=== PATIENT | female | born 1945 | race Caucasian/White ===

== ENCOUNTER 2025-04-03 08:33 | Outpatient (AMB) | payer MEDICARE, SELFPAY ==
--- NOTE | 2025-04-03 08:49 | A.PHYSOV ---
Vital Signs 04/03/25 08:50 Height 5 ft 5 in Weight 243 lb BMI 40.4 Intake Visit Reasons: F/U: 3M FUV Intake Note: 79 year old female in office today for her 3 month narcotic contract appointment Allergies amoxicillin (From Augmentin) Allergy (Unknown, Verified 04/03/25 08:46) Unknown clavulanic acid (From Augmentin) Allergy (Unknown, Verified 04/03/25 08:46) Unknown codeine Allergy (Unknown, Verified 04/03/25 08:46) Unknown piperacillin (From Zosyn) Allergy (Unknown, Verified 04/03/25 08:46) Unknown tazobactam (From Zosyn) Allergy (Unknown, Verified 04/03/25 08:46) Unknown vancomycin Allergy (Unknown, Verified 04/03/25 08:46) Unknown HPI Comments Details: History of Present Illness The patient is a 79-year-old female presenting with persistent neuropathic pain in her feet. She has a history of diabetic neuropathy, which has been ongoing for many years, contributing to her chronic pain condition. In addition to neuropathy, she suffers from chronic renal venous insufficiency and chronic lower extremity lymphedema, which have led to skin breakdowns and ulcers. These conditions have been managed with moisturizing and other supportive care measures. The patient has been on pregabalin and oxycodone for pain management, having transitioned from gabapentin due to lack of efficacy. Her pain management regimen has been stable, providing her with a better quality of life. Pain Description - Neuropathic pain is located in both legs. - Pain management includes pregabalin and oxycodone. - Pain has been controlled, improving quality of life. Results [facility] Surgical History (Updated 04/03/25 @ 08:51 by Lizette Shen MA) History of hand surgery (Unknown) Social History (Updated 04/03/25 @ 08:52 by Lizette Shen MA) Household Members: None Alcohol intake: current Alcohol intake frequency: does not drink Patient Tobacco Use Status: Never used Tobacco Use of substances other than those prescribed or required for medical reasons: No Current occupational status: retired Review of Systems Narrative Review of Systems - Neurological: Reports neuropathic pain in both legs. Denies exacerbation due to cold weather. - Integumentary: Reports moisturizing legs to manage skin breakdowns. Physical Exam Exam Exam: Physical Exam Patient appears to be in no acute distress. Appropriately conversant and oriented. Considerable degree of lower extremity edema with chronic skin discoloration secondary to chronic venous insufficiency. Neurological examination was deferred today. Her gait was not tested. Patient was examined in the wheelchair. Vital Signs: BMI result Body Mass Index 40.4 Assessment & Plan Assessment & Plan (1) Chronic pain syndrome: Code(s): G89.4 - Chronic pain syndrome Category: Medical (2) Diabetic neuropathy associated with type 2 diabetes mellitus: Code(s): E11.40 - Type 2 diabetes mellitus with diabetic neuropathy, unspecified Category: Medical Qualifiers: Diabetes mellitus complication detail: diabetic polyneuropathy Qualified Code(s): E11.42 - Type 2 diabetes mellitus with diabetic polyneuropathy (3) Lymphedema: Code(s): I89.0 - Lymphedema, not elsewhere classified Category: Medical Plan Pain Management - Affect: Pain management has improved her quality of life. - Analgesia: Currently on pregabalin and oxycodone, with stable pain control. - Adverse Effects: None reported. - Activities of Daily Living: Pain control allows for better quality of life. - Aberrant Drug Related Behaviors: None reported. - Prescription monitoring report reviewed. Plan Patient was informed and verbally consented to the use of an ambient scribe for clinic note documentation during this visit. 1. Diabetic Neuropathy The patient continues to manage diabetic neuropathy with pregabalin, having transitioned from gabapentin due to lack of efficacy. Pain management is stable, and she reports improved quality of life. 2. Chronic Renal Venous Insufficiency Chronic renal venous insufficiency is managed with supportive care, including moisturizing to prevent skin breakdowns. 3. Chronic Lower Extremity Lymphedema Chronic lower extremity lymphedema is managed with supportive care, including moisturizing to prevent skin breakdowns. 4. Neuropathic Pain Neuropathic pain is managed with pregabalin and oxycodone, with stable pain control reported. The prescription monitoring report was reviewed to ensure compliance. Discussion Notes During the visit, we discussed the management of the patient's neuropathic pain, emphasizing the importance of medication adherence and the effectiveness of her current regimen with pregabalin and oxycodone. We reviewed the prescription monitoring report to ensure compliance and discussed the continuation of her supportive care measures for her chronic conditions. Patient Instructions - Continue taking pregabalin and oxycodone as prescribed. - Moisturize legs regularly to prevent skin breakdowns. - Follow up with Dr. Cisse for leg care as scheduled. Coding Level of Care Code Est Pt Level 3 (89524) Complex EM visit Add On G2211 Diagnoses Chronic pain syndrome G89.4 Diabetic polyneuropathy associated with type 2 diabetes mellitus E11.42 Diabetes mellitus complication detail: diabetic polyneuropathy Lymphedema I89.0
[2025-04-03 08:50] VITALS: BMI 40.4
--- OUTSIDE RECORDS SUMMARY | 2025-04-03 08:51 | XMS_ITS | Clinical Summary ---
Author Organization [facility] Address [address] [place] [address] Phone Care Team Providers Care Shipping Manager Name Role Phone Angie Sheikh MD Primary Care Provider [phone] Allergies Active Allergy Reactions Criticality Noted Date Comments Amoxicillin-Pot Clavulanate Other (see comments) 07/18/2012 diarrhea Codeine Nausea And Vomiting,Other (see comments) 04/28/2005 Piperacillin-Tazobactam In Dex Other (see comments) 08/01/2018 Vancomycin Other (see comments) 08/01/2018 Medications Albuterol Sulfate 108 (90 Base) MCG/ACT aerosol powder Inhale Activ e ammonium lactate (LAC-HYDRIN) 12 % lotion Apply topically if needed for dry skin Active fluticasone (FLOVENT DISKUS) 50 MCG/BLIST diskus inhaler Inhale 1 puff 2 (two) times a day Rinse mouth with water after use to reduce aftertaste and incidence of candidiasis. Do not swallow. Active lidocaine-prilo mandi (EMLA) cream Apply topically if needed for mild pain Active metoprolol succinate XL (TOPROL-XL) 100 MG 24 hr tablet Take 100 mg by mouth 1 (one) time each day Do not crush or chew. Active montelukast (SINGULAIR) 10 MG tablet Take 10 mg by mouth every night Active acetaminophen (TYLENOL) 500 MG tablet Take by mouth every 6 (six) hours if needed for mild pain Active famotidine-calc ium carb-mag hydroxide (PEPCID COMPLETE) 10-800-165 MG chewable tablet Chew 1 tablet 1 (one) time each day if needed for heartburn Active potassium chloride (KLOR-CON) 20 MEQ packet Take 20 mEq by mouth 2 (two) times a day Active Calcium-Vitamin D-Vitamin K (VIACTIV CALCIUM PLUS D) 650-12.5-40 MG-MCG-MCG chewable tablet Chew Acti ve Ascorbic Acid (VITAMIN C) 500 MG tablet Take 500 mg by mouth 1 (one) time each day Active warfarin (COUMADIN) 2.5 MG tablet Take 2.5 mg by mouth 1 (one) time each day Take as directed per After Visit Summary. Active midodrine (PROAMATINE) 10 MG tablet Take 10 mg by mouth 3 (three) times a day Active digoxin (Digox) 125 MCG tablet Take 125 mcg by mouth 1 (one) time each day Active Magnesium 400 MG tablet Take 1 tablet by mouth 1 (one) time each day Active Cholecalciferol (Vitamin D) 50 MCG (2000 UT) capsule Take 1 tablet by mouth 1 (one) time each day Active cyanocobalamin (VITAMIN B-12) 1000 MCG tablet Take 100 mcg by mouth 1 (one) time each day Active oxyCODONE (ROXICODONE) 5 MG immediate release tablet Take 5 mg by mouth every 4 (four) hours if needed for moderate pain Active Dietary Management Product (Vasculera) tablet Take 1 tablet by mouth 1 (one) time each day Active pregabalin (LYRICA) 150 MG capsule Take 150 mg by mouth in the morning and 150 mg in the evening. Active Empagliflozin 25 MG tablet Take 25 mg by mouth in the morning. 4 Active torsemide (DEMADEX) 20 MG tabletIndicatio ns:Edema,Heart Failure Take 20 mg by mouth 1 (one) time each day 120 mg daily 3x/week and 60 mg daily 4x/week Active spironolactone (ALDACTONE) 25 MG tabletIndicatio ns:Edema,Hypert ension Take 50 mg by mouth 1 (one) time each day Active Active Problems Problem Noted Date Diagnosed Date Hypo-osmolality and hyponatremia 07/01/2024 Vitamin D deficiency, not otherwise specified Hypertensive heart and chron ic kidney disease without heart failure, with stage 1 through stage 4 chronic kidney disease, or unspecified chronic kidney disease 11/12/2020 Chronic kidney disease, stage 2 (mild) 1 Hypervolemia 06/22/2019 Chronic kidney disease stage 3 06/14/2019 Hypertension 08/18/2016 Emphysema 08/17/2016 Congestive heart failure 05/19/2016 Type 2 diabetes mellitus without complication Pulmonary hypertension 07/31/2010 Overview (06/14/2019): mod Lymphedema 06/11/2009 Overview (06/14/2019): Bilateral legs Peripheral venous insufficiency 01/25/2007 Immunizations Immunization Administration Dates Next Due H1N1 Inj Preservative Free 04/11/2009 Hepatitis B 05/06/2007,11/04/2006,10/04/2006 Influenza Split High Dose Pr eservative Free IM 02/12/2019 Influenza TIV (IM) 02/18/2018, 5,03/06/2014,01/30,01/26/2012,02/11/2011,03/04/2010 ,02/17/2009,02/27/2008,02/25/2007,02/21,03/16/2005 Influenza, Unspecified 02/13/2017,02/15/2016 Pneumococcal Conjugate 13-Valent 09/04/2014 Pneumococcal Polysaccharide 08/18/2016, 2 Tdap 02/20/2013,01/05/2008 Zoster 01/27/2011 Family History Medical History Relation Comments Diabetes Mother Diabetes Sibling Hypertension Sibling sister Relation Status Comments Mother Sibling Social History Tobacco Use Types Packs/Day Years Used Date Smoking Tobacco: Never Smokeless Tobacco: Never Tobacco Cessation:Counseling Given: Not Answered Alcohol Use Standard Drinks/Week Comments Yes 0 (1 standard drink = 0.6 oz pure alcohol) Alcoholic Drinks/day: Occasional social drink Comments Unknown Sex and Gender Information Value Date Recorded Sex Assigned at Not on file Legal Sex Female 4:56 PM EST Gender Identity Not on file Sexual Orientation Not on file Last Filed Vital Signs Vital Sign Reading Time Taken Comments Blood Pressure 100/60 06/20/2024 12:50 PM EST Pulse 76 06/20/2024 12:50 PM EST Temperature - - Respiratory Rate - - Oxygen Saturation 95% 06/20/2024 12:50 PM EST Inhaled Oxygen Concentration - - Weight 109 kg (240 lb) 06/20/2023 12:56 PM EST Height 165.1 cm (5' 5 ) 06/26/2020 12:00 PM EST Body Mass Index 39.94 06/26/2020 12:00 PM EST Plan of Treatment Upcoming Encounters Date Type Department Care Team (Late st Contact Info) Description 06/20/2025 10:15 AM EST Office Visit [facility] [address] [phone] Karla Valentine ARNP [address] [phone] Health Maintenance Due Date Last Done Comments Diabetes: Ophthalmology Exam 07/15/2020 Diabetes: Pedal Pulse Checked 07/15/2020 Diabetes: Sensory Foot Exam 07/15/2020 Diabetes: Visual Foot Exam 07/15/2020 Diabetes: Hemoglobin A1C 09/17/2024 025, 06/19/2024, 05/18/2024, Additional history exists Influenza Vaccine (#1) 2025 4, 02/15/2023, 03/08/2022, Additional history exists Hepatitis B Vaccine Aged Out 05/06/2007, 11/04/2006, 10/04/2006 No longer eligible based on patient's age to complete this topic Pneumococcal Vaccine: 50+ Years Completed 08/18/2016, 09/04/2014, 07/23/2011 Pneumococcal Vaccine: Peds (0 to 5 Years) and At-Risk Patients (6 to 49 Years) Discontinued 08/18/2016, 09/04/2014, 07/23/2011 [facility] Care Teams Shipping Manager Relationship Specialty Start Date End Date Angie Sheikh MD [address] [place] [address] PCP - General 06/02/20
--- OUTSIDE RECORDS SUMMARY | 2025-04-03 08:51 | XMS_ITS | Clinical Summary ---
Author Organization [facility] Address [address] [place] [address] Care Team Providers Care Custody Assistant Name Role Phone Angie Sheikh MD Primary Care Provider [phone] Allergies Active Allergy Reactions Criticality Noted Date Comments Amoxicillin-Pot Clavulanate 07/24/19 Codeine 07/23/2021 Vancomycin 07/23/2021 Piperacillin-Tazobactam In Dex 07/23 Medications Medication Sig Dispensed Refills Start Date End Date Status midodrine (PROAMATINE) 10 MG tablet Take 10 mg by mouth 3 (three) times a day before meals. 0 Active warfarin (COUMADIN) 2.5 MG tablet Take 2.5 mg by mouth daily. 0 Active potassium chloride (KLOR-CON) 20 MEQ packet Take 20 mEq by mouth 2 (two) times a day. 0 Active spironolactone (ALDACTONE) tablet 25 mg Take 25 mg by mouth daily. 0 Active montelukast (SINGULAIR) 10 MG tablet Take 10 mg by mouth every night at bedtime. 0 Active vitamin B-12 (CYANOCOBALAMIN) tablet 1000 mcg Take 1,000 mcg by mouth daily. 0 Active magnesium oxide 400 (241.3 Mg) MG TABS tablet Take 400 mg by mouth 2 (two) times a day. 0 Active digoxin (LANOXIN) 125 MCG tablet Take 125 mcg by mouth daily. 0 Active gabapentin (NEURONTIN) 300 MG capsule Take 300 mg by mouth 3 (three) times a day. 0 Active torsemide (DEMADEX) 20 MG tablet Take 20 mg by mouth daily. 0 Active Cholecalciferol 50 MCG (1999 UT) TABS Take by mouth. 0 Active metoprolol succinate (TOPROL-XL) 24 hr tablet 50 mg Take 50 mg by mouth daily. 0 Active oxyCODONE (OXY-IR) 5 MG capsule Take 5 mg by mouth every 4 (four) hours as needed. 0 Active LACTOBACILLUS PO Take by mouth. 0 Acti ve [place]-3 Fatty Acids (FISH OIL ADULT GUMMIES PO) Take by mouth. 0 Active Calcium-Vitamin D-Vitamin K 500-100-40 MG-UNT-MCG CHEW Chew by mouth. 0 Activ e ascorbic acid (VITAMIN C) 500 MG tablet Take 500 mg by mouth daily. 0 Active Active Problems Problem Noted Date Diagnosed Date Erythrocytosis 07/23/2021 Social History Tobacco Use Types Packs/Day Years Used Date Smoking Tobacco: Never Assessed Sex and Gender Information Value Date Recorded Sex Assigned at Not on file Gender Identity Not on file Sexual Orientation Not on file Job Start Date Occupation Industry Not on file Not on file Not on file Last Filed Vital Signs Vital Sign Reading Time Taken Comments Blood Pressure 132/67 07/23/2021 11:31 AM EST Pulse 79 07/23/2021 11:31 AM EST Temperature 36.5 C (97.7 F) 07/23/2021 11:31 AM EST Respiratory Rate - - Oxygen Saturation 92% 07/23/2021 11:31 AM EST Inhaled Oxygen Concentration - - Weight 116.1 kg (256 lb) 07/23/2021 11:31 AM EST Height - - Body Mass Index - - Plan of Treatment Health Maintenance Due Date Last Done Comments Hepatitis C Screening 1945 Depression Screening 1959 Preventative Health Evaluation 10/29/1965 Shingrix-Zoster Vaccine (1 of 2) 10/29/1997 Fall Risk Assessment 10/29/2012 Osteoporosis Screening (DEXA Scan) 10/29/2012 RSV Adult > 60+ Yrs or (1 - 1-dose 75+ series) 10/29/2022 DTap / Tdap / Td (3 - Td or Tdap) 02/20/2023 02/20/2013, 01/05/2008 COVID-19 Vaccine ( season) 2025 12/28/2021, 05/20/2021, 08/21/2020, Additional history exists Influenza Vaccine (#1) 2025 , 03/11/2020, 02/12/2019, Additional history exists Pneumococcal Vaccine Completed 08/18/2016, 09/04/2014, 07/23/2011 Hepatitis B Vaccines Aged Out No long er eligible based on patient's age to complete this topic RSV Ped < 20 months Aged Out No longe r eligible based on patient's age to complete this topic Care Teams Custody Assistant Relationship Specialty Start Date End Date Angie Sheikh MD PCP - General Internal Medicine 06/23/21
--- OUTSIDE RECORDS SUMMARY | 2025-04-03 08:51 | XMS_ITS | Encounter Summary ---
Author Organization [facility] Address [address] [place] [address] Care Team Providers Care Java Software Name Role Phone Angie Sheikh MD Primary Care Provider [phone] Encounter Details Date Type Department Care Team (Late Contact Info) Description 07/03/[address] [facility] - Main Lab [address] [facility] [place] [phone] Karla Valentine FNP [address] [place] [phone] Vitamin D deficiency, unspecified Social History Tobacco Use Types Packs/Day Years Used Date Smoking Tobacco: Never Smokeless Tobacco: Never Alcohol Use Standard Drinks/Week Comments Not Currently 0 (1 standard drink = 0.6 oz pur e alcohol) Comments Unknown Sex and Gender Information Value Date Recorded Sex Assigned at Not on file Legal Sex Female 5:26 AM EST Gender Identity Not on file Sexual Orientation Not on file documented as of this encounter Plan of Treatment Upcoming Encounters Date Type Department Care Team (Late Contact Info) Description 05/27/2025 9:45 AM EST Office Visit Adult Medicine [address] [phone] Shabana Mcclellan PA [address] [place], [place] documented as of this encounter Goals Goal Patient Goal Type Associated Problems Recent Progress Patient-Stated? Author for my legs to be better General Worsening( 3:53 PM EDT) Yes Lorena Leon, OTR/L Note: Patient will be independent in HEP to increase lymph edema Patient will have appropriate compression in place Patient presents with increase skin stretch in both lower legs Patient presents with decreased symptoms of lymph edema which is reflected in decreased score of lymph edema life impact scale 07/31/2024 ; Patient demo HEP independently Patient has old juxta fit garment which fit poorly however patient is not very compliant with compression Patient presents with minimal increase in skin stretch both lower legs Patient present with increased size of both LE's 08/23/2024 Patient did measure decreased sizes in both LE's since last measured 07/31/2024 . Patient has been increased size in legs as she went on aashish and did not take diuretics and dairy nutritionist decreased dose of diuretics. 09/12/2024 Patient presents with decreased lymph edema in both LE's despite NOT taking diuretics as she has not been feeling well for several weeks R LE total circumferences of 630 cm ( 08/23) went to 624.6 cm L LE total circumferences of 621.5 cm ( 08/23) went to 612.5 cm Lymph edema life impact scale score went from 39.71 to 20.59 .. Note that patient has not been feeling well and her performance has not been affected by lymph edema rather by Overall malaise ( diarrhea /nausea /limited food/liquid intake) Patient is independent in Lymph edema management documented as of this encounter Procedures Procedure Name Priority Date/Time Associated Diagnosis Comments VITAMIN D 25 HYDROXY Routine 07/03/2024 12:20 PM EST Vitamin D deficiency, unspecified documented in this encounter Results * Vitamin D 25 hydroxy (07/03/2024 12:20 PM EST) Vit D, 25-Hydroxy 36.8 30.0 - 80.0 ng/mL LAB CHEMISTRY METHOD 07/03/2024 2:23 PM EST [facility] Blood Venous blood specimen / Unknown 07/03/2024 12:20 PM EST 07/03/2024 1:48 PM EST us Karla Serge RESIDENTIAL WORKER LAB BLOOD ORDERABLES Final R esult [facility] [address] [place] [address], documented in this encounter Visit Diagnoses Diagnosis Vitamin D deficiency, unspecified documented in this encounter Care Teams Java Software Relationship Specialty Start Date End Date Angie Sheikh MD [address] [place] [address] PCP - General 03/01/06 documented as of this encounter
--- OUTSIDE RECORDS SUMMARY | 2025-04-03 08:51 | XMS_ITS ---
Author Organization [facility] Care Team Providers Care Air Intercept Controller Name Role Phone Tyree Raúl Unavailable Unavailable Joanne Cline Unavailable Unavailable Nils Irving Unavailable Unavailable Sandra Waterman Unavailable Unavailable Edu Mcintyre Unavailable Unavailable Allergies and adverse reactions Code CodeSystem Substance Reaction Severity StartDate Concern Status 723 RXNORM Amoxicillin Unknown Unknown active 59256 RXNORM Clavulanic Acid Unknown Unknown active 2670 RXNORM Codeine Unknown 05/19/2019 active 8339 RXNORM Piperacillin Unknown Unknown active 51156 RXNORM Vancomycin Unknown Unknown active Zosyn Unknown 05/19/2019 active Care Team Name Role Address Phone Organization Dates Nils Irving PCP [address] [facility] [address], [place], [address], [facility] (Office): [facility] 05/19/2019 - 06/07/2019 Raúl Clements [address] [facility] [address], [place], [address], [facility] (Office): : [facility] 05/19/2019 - 06/07/[address] Joanne Cline [address] [place] [address] [address], [place], [address], [facility] (Office): [facility] 05/19/2019 - 06/07/2019 Sandra Waterman [address], [place], [address], [place] (Office): [facility] 05/19/2019 - 06/07/2019 Edu Mcintyre [address], [place], [address], [facility] (Office): : [facility] 05/19/2019 - 06/07/2019 Mental Status Section Date Assessment Total Score Description 06/07/2019 BIMS 14 cognitively int act CAM 0 No delirium ind icated PHQ-9 02 minimal depress ion 05/25/2019 BIMS 14 cognitively int act CAM 0 No delirium ind icated PHQ-9 02 minimal depress ion Insurance Providers Problems Problem # Description Date of onset Resolved Date Code CodeSystem Concern Status 1 HYPOMAGNESEMIA 05/28/[address] ac tive 2 PERSONAL HISTORY OF URINARY (TRACT) INFECTIONS 05/28/[address] active 3 VITAMIN B12 DEFICIENCY ANEMIA, UNSPECIFIED 05/28/[address] active 4 ESSENTIAL (PRIMARY) HYPERTENSION 05/27/[address] active 5 ACUTE ON CHRONIC DIASTOLIC (CONGESTIVE) HEART FAILURE 05/19/[address] active 6 CHRONIC ATRIAL FIBRILLATION, UNSPECIFIED 05/19/[address] active 7 HYPOKALEMIA 05/19/[address] active 8 JDE DEVELOPER (CURRENT) USE OF ANTICOAGULANTS 05/19/[address] active 9 LYMPHEDEMA, NOT ELSEWHERE CLASSIFIED 05/19/[address] active 10 MORBID (SEVERE) OBESITY DUE TO EXCESS CALORIES 05/19/[address] active 11 OTHER ABNORMALITIES OF GAIT AND MOBILITY 05/19/[address] active 12 UNSPECIFIED ASTHMA, UNCOMPLICATED 05/19/[address] active 13 UNSTEADINESS ON FEET 05/19/[address] active Reason for Referral No Reasons for Referral Entered Social History Social History Observation Description Start Date End Date Code Code System Current Smoking Status Tobacco smoking consumption unknown 577507964 SNOMED CT Sex Assigned At Female 1945 [address]-8 [facility] Gender Identity Sexual Orientation Vital Signs Code Code System Vitals Name Values and Units Timing Information 2339-0 [facility] Blood Sugar Rqnnv=910.0 Units=mg/dL 06/07/2019 50749-5 [facility] Pain Level Value=0.0 06/07/2019 8462-4 [facility] Blood Pressure-Diastolic Value=62 Un its=mmHg 06/07/2019 8480-6 [facility] Blood Pressure-Systolic Value=88 Uni ts=mmHg 06/07/2019 8310-5 [facility] Body Temperature Value=97.8 Units= F 06/07/2019 8867-4 [facility] Heart rate Value=81.0 Units=/min 77508-7 INC Weight Tsouk=008.6 Units=Lbs 9279-1 [facility] Respiratory Rate Value=18.0 Units=/m in 06/06/2019 87221-7 [facility] O2 % BldC Oximetry Value=97.0 Units= % 06/06/2019 8302-2 [facility] Height Value=65.0 Units=Inches 05/19/2019
--- OUTSIDE RECORDS SUMMARY | 2025-04-03 08:51 | XMS_ITS | Clinical Summary ---
Author Organization 175 [facility] Address [address] [place] [address] Phone Care Team Providers Care Technical Maintenance Technician Name Role Phone Angie Sheikh MD Primary Care Provider [phone] Allergies Active Allergy Reactions Criticality Noted Date Comments Amoxicillin-Pot Clavulanate 07/18/2012 Other Reaction(s): OTHER diarrhea Codeine Nausea And Vomiting 04/28/2005 Piperacillin-Tazobactam Hives 08/01/2018 Vancomycin Hives 08/01/2018 Medications cyanocobalamin (VITAMIN B-12) 1,000 mcg tablet Take 1 tablet (1,000 mcg total) by mouth 1 (one) time each day. 09/21/19 24 Active digoxin (LANOXIN) 125 mcg (0.125 mg) tablet Take 1 tablet (125 mcg total) by mouth 1 (one) time each day. 09/21/19 24 Active OMEGA-3 FATTY ACIDS ORAL Take 1 tablet by mouth 1 (one) time each day. Active oxyCODONE-acet aminophen (PERCOCET) 5-325 mg per tablet Take 1 tablet by mouth 2 (two) times a day if needed for severe pain. 06/29/19 24 Active potassium chloride (KLOR-CON) 20 mEq packet Take 20 mEq by mouth 3 (three) times a day. 09/21/19 24 Active pregabalin (LYRICA) 150 mg capsule Take 1 capsule (150 mg total) by mouth 2 (two) times a day. 06/06/19 24 Active spironolactone (ALDACTONE) 50 mg tablet Take 2 tablets (100 mg total) by mouth 1 (one) time each day. Active torsemide (DEMADEX) 20 mg tablet Take 6 Tablets by mouth 2 times daily. 3 tabs four times weekly, & then 6 tabs the remaining three days Active calcium-vitami n D3-vitamin K (Viactiv) 650 mg-12.5 mcg-40 mcg tablet,chewabl e 0 Refills, Maintenance, 05/05/20 17:10:00 EST, Partial fill upon patient request if the prescription is for a schedule II opioid drug. 05/05/20 20 Active montelukast (SINGULAIR) 10 mg tablet Take 1 tablet (10 mg total) by mouth at bedtime. 90 each 1 08/23/19 25 Active metoprolol succinate (TOPROL-XL) 50 mg 24 hr tablet Take 1 tablet (50 mg total) by mouth 1 (one) time each day. 90 each 1 08/23/19 25 Active magnesium oxide (MAG-OX) 400 mg magnesium tablet TAKE 2 TABLETS BY MOUTH EVERY DAY 180 tablet 1 08/27/19 25 Active blood sugar diagnostic (OneTouch Verio test strips) test strip 1 each by Other route 1 (one) time each day before breakfast. 100 strip 10/19/19 25 Active warfarin (COUMADIN) 2.5 mg tablet Take 1 tablet (2.5 mg total) by mouth 1 (one) time each day. 90 tablet 1 10/24/19 25 Active cholecalcifero l (VITAMIN D-3) 50 mcg (2,000 unit) tablet Take 1 tablet (2,000 Units total) by mouth 1 (one) time each day. 90 tablet 1 01/10/20 25 Active Jardiance 25 mg tablet TAKE 1 TABLET BY MOUTH 1 TIME EACH DAY. 90 tablet 03/17/20 25 Active midodrine (PROAMATINE) 10 mg tablet TAKE 1 TABLET BY MOUTH 3 TIMES A DAY BEFORE MEALS. 270 tablet 1 03/21/20 25 Active midodrine (PROAMATINE) 10 mg tablet Take 1 tablet (10 mg total) by mouth 3 (three) times a day before meals. 270 tablet 1 08/23/19 25 025 Discontinued empagliflozin (Jardiance) 25 mg tablet Take 1 tablet (25 mg total) by mouth 1 (one) time each day. 90 tablet 1 08/23/19 25 025 Discontinued Active Problems Problem Noted Date Diagnosed Date Erythrocytosis 04/26/2022 Stage 3 chronic kidney disease ([facility] [place]24, [facility] V28) 06/14/2019 Hypertension 08/18/2016 COPD (chronic obstructive pu lmonary disease) with emphysema ([facility] V24, [facility] V28) 08/17/2016 CHF (congestive heart failure) ([facility] V24, [facility] V28) 05/19/2016 Atrial fibrillation ([facility] V24, [facility] V28) 0 05/28/2013 Overview (02/15/2024): [id number] 4; reluctantly on anticoagulation 05/07 Type 2 diabetes mellitus wit h morbid obesity ([facility] V24, [facility] V28) 02/29/2012 Pulmonary hypertension ([facility] V24, [facility] V28 ) 07/31/2010 Overview (02/15/2024): mod Lymphedema 06/11/2009 Overview (02/15/2024): Bilateral legs Peripheral venous insufficiency 01/25/2007 Rosacea 09/01/2006 Asthma 07/09/2005 Morbid obesity with BMI of 4 0.0-44.9, adult ([facility] V24, [facility] V28) 06/04/2005 Encounters Date Type Department Care Team Description 03/14/2025 Anticoagulation - [facility] [address] [phone] Angie Sheikh MD Paroxysmal atrial fibrillation ([facility] V24, [facility] V28) (Primary Dx) 03/01/2025 Anticoagulation - Warfarin Visit [facility] [address] [phone] Angie Sheikh MD Paroxysmal atrial fibrillation ([facility] V24, [facility] V28) (Primary Dx) 02/20/2025 Anticoagulation - [facility]farin [place] [facility] [place] [address] [place] [phone] Claudine Cameron LPN Paroxysmal atrial fibrillation ([facility] V24, [facility]/HCC V28) (Primary Dx) 02/06/2025 Anticoagulation - Warfarin Visit [facility] - [address] [phone] Claudine Cameron LPN Paroxysmal atrial fibrillation ([facility]/HCC V24, CMS/HCC V28) (Primary Dx) 01/30/2025 Anticoagulation - Warfarin Visit [facility] - [address] [phone] Claudine Cameron LPN Paroxysmal atrial fibrillation ([facility]CC V24, [facility]/HCC V28) (Primary Dx) 01/23/2025 Anticoagulation - Warfarin Visit Coumadin [address] [phone] Denise Ferrer LPN Paroxysmal atrial fibrillation ([facility]/HCC V24, CMS/HCC V28) (Primary Dx) 01/16/2025 Anticoagulation - Warfarin Visit [facility] - [address] [phone] Claudine Cameron LPN Paroxysmal atrial fibrillation ([facility]/HCC V24, CMS/HCC V28) (Primary Dx) 01/09/2025 11:00 AM EDT Office Visit Adult Medicine [address] [phone] Angie Sheikh MD Morbid obesity with BMI of 40.0-44.9, adult [facility] V28) (Primary Dx); Primary hypertension; Congestive heart failure, unspecified HF chronicity, unspecified heart failure type ([facility]/HCC V24, [facility]/HCC V28); Lymphedema; Stage 3a chronic kidney disease ([facility]/HCC V24, [facility]/HCC V28); Type 2 diabetes mellitus with morbid obesity ([facility] V24, [facility]CC V28); Pulmonary emphysema, unspecified emphysema type ([facility]/HCC V24, [facility] V28); Paroxysmal atrial fibrillation ([facility] V24, [facility] V28) from Last 3 Months Immunizations Immunization Administration Dates Next Due H1N1 Inj Preservative Free 04/11/2009 Hepatitis B (Tbhqvty-K-Ioqxl , Recombivax HB-Adult) 19yo and older 05/06/2007,11/04/2006,10/04/2006 Influenza Quadravalent, 0.5m l (Fluad) 65yo and older 02/15/2023,02/26/2021 Influenza Quadravalent, 0.5m l (Fluzone High-dose) 65yo and older 03/08/2022,03/11/2020 Influenza trivalent, 0.5mL ( Fluad) 65yo and older 03/13/2025,02/15/2023,03/08/2022,02/26,03/11/2020,02/12/2019,02/18/2018 ,02/13/2017,02/15/2016,03/16/2005 Influenza trivalent, 0.5mL ( Fluzone High-dose) 65yo and older 02/01/2024,02/12/2019,02/18/2018,02/13,02/15/2016 Influenza trivalent, 0.5mL, preservative free (Fluarix; FluLaval; Fluzone) ages 6mo and older (Afluria) 3 years and older 02/27/2008 Influenza trivalent, with pr eservative (Fluzone; Afluria) 6mo and older 02/18/2015,03/06/2014,01/30/2013,01/25,02/11/2011,03/04/2010,02/17/2009 ,02/27/2008,02/25/2007,03/15/2006,02/21 Pfizer (ages 12 & older) Biv alent, COVID-19 04/28/2022 Pfizer (ages 12 & older) MARIIA S-CoV-2 COVID-19, mRNA, LNP-S, jeremiah-sucrose, preservative free 12/28/2021 Pfizer SARS-CoV-2 COVID-19, mRNA, LNP-S, preservative free 04/28/2022,12/28/2021,08/21/2020,07/31 Pneumococcal conjugate 13 va lent (Prevnar 13, PCV13) 2mo and older 09/04/2014 Pneumococcal conjugate 20 va lent (Prevnar 20, PCV 20) 2mo and older 12/15/2022 Pneumococcal polysaccharide 23 valent (Pneumovax 23) 2yo and older 08/18/2016,07/23/2011 RSV, bivalent, protein subun it RSVpreF, 0.5mL, Preservative Free (Arexvy) 50yo and older 11/09/2023 Td Tetanus diptheria (Tdvax) 7yo and older 06/13/2023 Tdap Tetanus diptheria acell ular pertussis (Boostrix; Adacel) 7yo and older 03/13/2025,02/20/2013,01/05/2008 Typhoid VICPS (Typhim Vi) 2y o and older 04/22/2001 Zoster Live 01/27/2011 Zoster recombinant (Shingrix ) 19yo and older 02/15/2023,12/15/2022 Surgical History Surgery Date Site/Laterality Comments OTHER SURGICAL HISTORY 02/2022 PROCEDURE: MAMMOGRAM SCREENING MAMMOGRAM 05/31/2024 Bilateral Medical History Medical History Date Comments Lymphedema 06/11/2009 Atrial fibrillation ([facility] V24, [facility] V28) CHF (congestive heart failure) ([facility] V24, [facility] V28) 05/19/2016 Asthma 07/09/2005 COPD (chronic obstructive pu lmonary disease) with emphysema ([facility] V24, [facility] V28) 08/17/2016 Hypertension 08/18/2016 Morbid obesity with BMI of 5 0.0-59.9, adult ([facility] V24, [facility] V28) 06/04/2005 Peripheral venous insufficiency 01/25/2007 Pulmonary hypertension ([facility] V24, [facility] V28 ) 07/31/2010 mod Rosacea 09/01/2006 Diabetes mellitus type 2, un complicated ([facility] V24, [facility] V28) 02/29/2012 Erythrocytosis 04/26/2022 Family History Medical History Relation Name Comments Diabetes Maternal Grandmother Diabetes Mother 53 Hypertension Sister 1 Other: fibromyalgia Sister 2 Breast cancer Neg Hx Colon cancer Neg Hx Ovarian cancer Neg Hx Uterine cancer Neg Hx Relation Name Status Comments Maternal Grandmother Mother Sister 1 Sister 2 Social History Tobacco Use Types Packs/Day Years Used Date Smoking Tobacco: Never Smokeless Tobacco: Never Tobacco Cessation:Counseling Given: Not Answered Alcohol Use Standard Drinks/Week Comments Not Currently 0 (1 standard drink = 0.6 oz pur e alcohol) Housing Instability Answer Date Recorde d Are you worried that in the next 2 months you may not have stable housing? No 11/05/2024 Food Access & Nutrition Answer Date Rec orded Do you have access to a vari ety of food including fruits and vegetables? Yes 11/05/2024 Access to Healthcare Answer Date Record ed Within the last 3 months, ho w many times did you visit the emergency department for your medical care? 0 11/05/2024 Health Literacy Answer Date Recorded How often do you need to hav e someone help you when you read instructions, pamphlets, or other written material from your doctor or pharmacy? Never 11/05/2024 Caregiver: How often do you need to have someone help you when you read instructions, pamphlets, or other written material from your doctor or pharmacy? Not on file 11/05/2024 Financial Risk Answer Date Recorded How hard is it for you to pa y for the very basics like food, housing, medical care, and air conditioning / heating? Not very hard 11/05/2024 Transportation Answer Date Recorded Has the lack of transportati on kept you from meetings, work, or from getting things needed for daily living? No Has the lack of transportati on kept you from medical appointments or from getting medications? No 11/05/2024 Social Isolation Answer Date Recorded How often do you feel lonely or isolated from th ose around you? Never 11/05/2024 Food Risk Answer Date Recorded Within the past 12 months we worried whether our food would run out before we got money to buy more. Never true 11/05/2024 Within the past 12 months th e food we bought just didn't last and we didn't have money to get more. Never true 11/05/2024 Dependent Care Answer Date Recorded Do you need help finding or paying for care for your loved ones. For example, early childhood associate or elderly care for an older adult? No 11/05/2024 Education Answer Date Recorded Do you think completing more education or training, like finishing a GED, going to college, or learning a trade, would be helpful for you? N/A 11/05/2024 Employment and Income Answer Date Recor ded During the last four weeks, have you been actively looking for work? No 11/05/2024 Living Situation Answer Date Recorded What is your living situation? Unrecognized valu e 11/05/2024 Comments Unknown Sex and Gender Information Value Date Recorded Sex Assigned at Not on file Legal Sex Female 5:26 AM EST Gender Identity Not on file Sexual Orientation Not on file Obstetrics History Para Term AB IAB SAB Ectopic Multiple Livin g Live Births 0 0 0 Last Filed Vital Signs Vital Sign Reading Time Taken Comments Blood Pressure 105/66 01/09/2025 10:53 AM EDT Pulse 80 01/09/2025 10:53 AM EDT Temperature 36.2 C (97.2 F) 01/09/2025 10:53 AM EDT Respiratory Rate 18 01/09/2025 10:53 AM EDT Oxygen Saturation 95% 01/09/2025 10:53 AM EDT Inhaled Oxygen Concentration - - Weight 116 kg (255 lb) 01/09/2025 10:53 AM EDT Height 165.1 cm (5' 5 ) 01/09/2025 10:53 AM EDT Body Mass Index 42.43 01/09/2025 10:53 AM EDT Plan of Treatment Upcoming Encounters Date Type Department Care Team (Late st Contact Info) Description 05/27/2025 9:45 AM EST Office Visit Adult Medicine [facility] [address] [place], [place] [phone] Shabana Mcclellan PA [address] [place], [place] Health Maintenance Due Date Last Done Comments Diabetes: Annual Foot Exam 01/22/2024 01/21/2023 Diabetes: Annual Retina Eye Exam 04/03/2025 04/03/2024, 04/10/2023, 04/10/2023 Diabetes: Blood Sugar Control Test (HGBA1C) 07/10/2025 01/07/2025, 06/19/2024, 05/18/2024, Additional history exists COVID-19 Vaccine (9 - Pfizer risk season) 2025 03/13/2025, 02/01/2024, 03/15/2023, Additional history exists Falls Risk Assessment 11/05/2025 11/05/2024, 024 Medicare Annual Wellness Visit 11/05/2025 11/05/2024, 06/13/2023 Social Influencers of Health Screening 11/05/2025 11/05/2024 Diabetes: Annual Urine Albumin-Creatinine Ratio (uACR) 01/07/2026 01/07/2025, 06/19/2024, 04/04/2023 Diabetes: Annual GFR (Glomerular Filtration Rate) 01/07/2026 01/07/2025, 08/22/2024, 07/10/2024, Additional history exists Hypertension/CHF/CAD Annual BMP Blood Test 01/07/2026 01/07/2025, 08/22/2024, 07/10/2024, Additional history exists Osteoporosis Screening (Bone Density Screening) 02/01/2028 01/31/2013 Cholesterol Screening (Lipid Panel) 01/07/2030 01/07/2025, 04/04/2023 DTaP,Tdap,and Td Vaccines (5 - Td or Tdap) 03/13/2035 03/13/2025, 06/13/2023, 02/20/2013, Additional history exists Hepatitis B Vaccines Completed 05/06/2007, 11/04/2006, 10/04/2006 Hepatitis C Screening Completed 07/26/2012 Pneumococcal Vaccine: 50+ Years Completed 12/15/2022, 08/18/2016, 09/04/2014, Additional history exists Zoster Vaccines Completed 02/15/2023, 11/21, 01/27/2011 RSV Immunization Adult Patients Completed 11/09/2023 Breast Cancer Screening Discontinued 05/31/19, 05/17/2023, 02/22/2022, Additional history exists Depression Screening Completed 11/05/2024 Influenza Vaccine Completed 03/13/2025, , 02/15/2023, Additional history exists HIB Vaccines Aged Out No longer eligi ble based on patient's age to complete this topic HPV Vaccines Aged Out No longer eligi ble based on patient's age to complete this topic Hepatitis A Vaccines Aged Out No long er eligible based on patient's age to complete this topic IPV Vaccines Aged Out No longer eligi ble based on patient's age to complete this topic MMR Vaccines Aged Out No longer eligi ble based on patient's age to complete this topic Meningococcal ACWY Vaccine Aged Out N o longer eligible based on patient's age to complete this topic Meningococcal B Vaccine Aged Out No l onger eligible based on patient's age to complete this topic RSV Immunization Patients Under 20 months Aged Out No longer eligible based on patient's age to complete this topic Varicella Vaccines Aged Out No longer eligible based on patient's age to complete this topic Goals Goal Patient Goal Type Associated Problems [...] aashish and did not take diuretics and bay stocker decreased dose of diuretics. 09/12/2024 Patient presents [...] Patient is independent in Lymph edema management Procedures Procedure Name Priority Date/Time Associated Diagnosis Comments PROTHROMBIN TIME WITH INR Routine 03/13/2025 1:36 PM EDT Atrial fibrillation, unspecified type (CMS/HCC V24, CMS/HCC V28) Congestive heart failure, unspecified HF chronicity, unspecified heart failure type (CMS/HCC V24, CMS/HCC V28) Anticoagulation management encounter PROTHROMBIN TIME WITH INR Routine 03/01/2025 12:36 PM EDT Atrial fibrillation, unspecified type (CMS/HCC V24, CMS/HCC V28) Congestive heart failure, unspecified HF chronicity, unspecified heart failure type (CMS/HCC V24, CMS/HCC V28) Anticoagulation management encounter PROTHROMBIN TIME WITH INR Routine 02/20/2025 11:08 AM EDT Atrial fibrillation, unspecified type (CMS/HCC V24, CMS/HCC V28) Congestive heart failure, unspecified HF chronicity, unspecified heart failure type (CMS/HCC V24, CMS/HCC V28) Anticoagulation management encounter PROTHROMBIN TIME WITH INR Routine 02/06/2025 12:25 PM EDT Atrial fibrillation, unspecified type (CMS/HCC V24, CMS/HCC V28) Congestive heart failure, unspecified HF chronicity, unspecified heart failure type (CMS/HCC V24, CMS/HCC V28) Anticoagulation management encounter PROTHROMBIN TIME WITH INR Routine 01/30/2025 11:39 AM EDT Atrial fibrillation, unspecified type (CMS/HCC V24, CMS/HCC V28) Congestive heart failure, unspecified HF chronicity, unspecified heart failure type (CMS/HCC V24, CMS/HCC V28) Anticoagulation management encounter PROTHROMBIN TIME WITH INR Routine 01/22/2025 4:06 PM EDT Atrial fibrillation, unspecified type (CMS/HCC V24, CMS/HCC V28) Congestive heart failure, unspecified HF chronicity, unspecified heart failure type (CMS/HCC V24, CMS/HCC V28) Anticoagulation management encounter PROTHROMBIN TIME WITH INR Routine 01/16/2025 10:57 AM EDT Atrial fibrillation, unspecified type ([facility] V24, [facility]CC V28) Congestive heart failure, unspecified HF chronicity, unspecified heart failure type (CMS/HCC V24, CMS/HCC V28) Anticoagulation management encounter COMPREHENSIVE METABOLIC PANEL Routine 01/07/2025 10:04 AM EDT Type 2 diabetes mellitus with morbid obesity ([facility]CC V24, [facility] V28) HEMOGLOBIN A1C Routine 01/07/2025 10:04 AM EDT Type 2 diabetes mellitus with morbid obesity ([facility]CC V24, [facility] V28) MICROALBUMIN CREATININE URINE RATIO Routine 01/07/2025 10:04 AM EDT Type 2 diabetes mellitus with morbid obesity ([facility]CC V24, [facility] V28) LIPID PANEL WITH REFLEX TO DIRECT LDL Routine 01/07/2025 10:04 AM EDT Type 2 diabetes mellitus with morbid obesity ([facility] V24, [facility] V28) MG MAMMO DIGITAL SCREENING W OLEKSANDR BILAT Routine 05/31/2024 9:25 AM EST Encounter for screening mammogram for breast cancer EXTERNAL DIABETIC RETINA EYE EXAM Routine 04/03/2024 3:12 PM EST HM HEPATITIS C SCREENING Routine 07/26/2012 from Last 3 Months or Most Recently Relevant to Health Maintenance Results * (ABNORMAL) Prothrombin time with INR (03/13/2025 1:36 PM EDT) Only the most recent of7 resultswithin the time period is included. Protime 21.6(H) 10.6 - 13.9 sec LAB COAGULATION METHOD 03/13/2025 4:39 PM EDT [facility] INR 1.8 LAB COAGULATION METHOD 03/13/2025 4:39 PM T [facility] Blood Venous blood specimen / Unknown Venipuncture / Unknown 03/13/2025 1:36 PM EDT 03/13/2025 1:36 PM EDT us Angie Sheikh MD LAB BLOOD ORDERABLES Final Resul t [facility] [address] [place] [address], [place] [phone] * (ABNORMAL) Lipid panel with reflex to direct LDL (01/07/2025 10:04 AM EDT) Cholesterol 194 0 - 200 mg/dL LAB CHEMISTRY METHOD 01/07/2025 5:32 PM EDT [facility] Triglycerides 388(H) 0 - 150 mg/dL LAB CHEMISTRY METHOD 01/07/2025 5:32 PM EDT [facility] HDL 37(L) >=40 mg/dL LAB CHEMISTRY METHOD 01/07/2025 5:32 PM EDT [facility] LDL Calculated 79 0 - 100 mg/dL LAB CHEMISTRY METHOD 01/07/2025 5:32 PM EDT [facility] Comment:Estimated LDL Calcul ated using equation: Total cholesterol - HDL cholesterol - (Triglycerides/5) VLDL Cholesterol Prince 77.6 mg/dL LAB CHEMISTRY METHOD 01/07/2025 5:32 PM T [facility] Non HDL Chol. (LDL+VLDL) 157(H) <145 mg/dL LAB CHEMISTRY METHOD 01/07/2025 5:32 PM EDT [facility] Chol/HDL Ratio 5.2(H) 0.0 - 4.4 LAB CHEMISTRY METHOD 01/07/2025 5:32 PM EDT [facility] Blood Venous blood specimen / Unknown Venipuncture / Unknown 01/07/2025 10:04 AM EDT 01/07/2025 10:04 AM EDT us Angie Sheikh MD LAB BLOOD ORDERABLES Final Resul t Performing Organization Address [facility] de Phone Number [facility] [address] [place] [address], [place] [phone] * Microalbumin creatinine urine ratio (01/07/2025 10:04 AM EDT) Creatinine, Urine 116.0 mg/dL LAB CHEMISTRY METHOD 01/07/2025 2:06 PM EDT [facility] Microalb, Ur 9.0 0.0 - 29.0 mg/L LAB CHEMISTRY METHOD 01/07/2025 2:06 PM EDT [facility] Microalb/Creat Ratio 8 <30 mg/g creat LAB CHEMISTRY METHOD 01/07/2025 2:06 PM EDT [facility] Urine Urine specimen obtained by clean catch procedure / Unknown Non-blood Collection / Unknown 01/07/2025 10:04 AM EDT 01/07/2025 10:04 AM EDT us Angie Sheikh MD LAB URINE ORDERABLES Final Resul t Performing Organization Address [facility] de Phone Number [facility] [address] [place] [address], [place] [phone] * (ABNORMAL) Hemoglobin A1c (01/07/2025 10:04 AM EDT) Hemoglobin A1C 8.2(H) <6.5 % LAB CHEMISTRY METHOD 01/07/2025 1:32 PM EDT [facility] Mean Bld Glu Estim. 189 mg/dL LAB CHEMISTRY METHOD 01/07/2025 1:32 PM EDT [facility] Blood Venous blood specimen / Unknown Venipuncture / Unknown 01/07/2025 10:04 AM EDT 01/07/2025 10:04 AM EDT us Angie Sheikh MD LAB BLOOD ORDERABLES Final Resul t [facility] [address] [place] [address], * (ABNORMAL) Comprehensive metabolic panel (01/07/2025 10:04 AM EDT) Sodium 137 133 - 145 mmol/L LAB CHEMISTRY METHOD 01/07/2025 5:32 PM EDT [facility] Potassium 3.8 3.5 - 5.5 mmol/L LAB CHEMISTRY METHOD 01/07/2025 5:[address] [facility] Chloride 101 96 - 110 mmol/L LAB CHEMISTRY METHOD 01/07/2025 5:[address] [facility] CO2 33(H) 21 - 32 mmol/L LAB CHEMISTRY METHOD 01/07/2025 5:[address] [facility] Anion Gap 3 3 - 11 LAB CHEMISTRY METHOD 01/07/2025 5:[address] [facility] Glucose 150(H) 70 - 100 mg/dL LAB CHEMISTRY METHOD 01/07/2025 5:[address] [facility] BUN 19 5 - 25 mg/dL LAB CHEMISTRY METHOD 01/07/2025 5:[address] [facility] Creatinine 0.90 0.50 - 1.10 mg/dL LAB CHEMISTRY METHOD [facility]/07[facility] 66 >=60 mL/min/1. 73m2 LAB CHEMISTRY METHOD 01/07/2025 5:[address] [facility] Comment:Calculation based on the Chronic Kidney Disease Epidemiology Collaboration (CKD-EPI) equation refit without adjustment for race. BUN/Creatinine Ratio 21.1 LAB CHEMISTRY METHOD 01/07/2025 5:[address] [facility] Calcium 10.0 8.5 - 10.5 mg/dL LAB CHEMISTRY METHOD 01/07/2025 5:[address] [facility] AST (SGOT) 23 10 - 42 unit/L LAB CHEMISTRY METHOD 01/07/2025 5:32 PM EDT [facility] ALT (SGPT) 28 10 - 60 unit/L LAB CHEMISTRY METHOD 01/07/2025 5:32 PM EDT [facility] Alkaline Phosphatase 99 42 - 121 unit/L LAB CHEMISTRY METHOD 01/07/2025 5:32 PM EDT [facility] Total Protein 7.5 6.0 - 8.0 g/dL LAB CHEMISTRY METHOD 01/07/2025 5:32 PM EDT [facility] Albumin 3.7 3.2 - 5.0 g/dL LAB CHEMISTRY METHOD 01/07/2025 5:32 PM EDT [facility] Total Bilirubin 1.1 0.0 - 1.4 mg/dL LAB CHEMISTRY METHOD 01/07/2025 5:32 PM EDT [facility] Blood Venous blood specimen / Unknown Venipuncture / Unknown 01/07/2025 10:04 AM EDT 01/07/2025 10:04 AM EDT us Angie Sheikh MD LAB BLOOD ORDERABLES Final Resul t [facility] [address] [place] [address], [place] [phone] * MG Mammo Digital Screening w Oleksandr bilat (05/31/2024 9:25 AM EST) Anatomical Region Laterality Modality Breast Bilateral Mammography 05/31/2024 5:58 PM EST Impressions 05/31/2024 6:03 PM EST BILATERAL BREASTS: Negative, no evidence of malignancy. Normal interval follow- up is recommended in 12 months. BREAST DENSITY: B - There are scattered areas of fibroglandular density. BI-RADS CATEGORY: 1 - NEGATIVE RECOMMENDATION: Screening bilateral mammogram is recommended in 1 year. Mammo Location: [facility], [address] [place] [address], [id number], . -------- FINAL REPORT -------- Dictated By: David Joseph Dictated Date: 05/31/2024 17:58 ET Assigned Physician: David Joseph Reviewed and Electronically Signed By: David Joseph Signed Date: 05/31/2024 18:03 ET Workstation ID: [id number] Transcribed By: Self Edit Transcribed Date: 05/31/2024 17:58 ET Narrative 05/31/2024 6:03 PM EST STUDY: Bilateral screening mammography with tomosynthesis and CAD TECHNIQUE: Bilateral full-field digital screening mammography is obtained and read in conjunction with computer-aided detection. Tomosynthesis as well as 2-D C view imaging were obtained. COMPARISON: Comparison made to multiple prior, most recent May 17, 2023, and most remote October 09, 2014. BILATERAL BREASTS: No significant masses, suspicious calcifications or other abnormalities are seen in either breast. Procedure Note David Joseph MD - 05/31/2024 STUDY: Bilateral screening mammography with tomosynthesis and CAD TECHNIQUE: Bilateral full-field digital screening mammography is obtainedand read in conjunction with computer-aided detection. Tomosynthesis aswell as 2-D C view imaging were obtained. COMPARISON: Comparison made to multiple prior, most recent April, and most remote October 09, 2014. BILATERAL BREASTS: No significant masses, suspicious calcifications orother abnormalities are seen in either breast. IMPRESSION: BILATERAL BREASTS: Negative, no evidence of malignancy. Normal intervalfollow-up is recommended in 12 months. BREAST DENSITY: B - There are scattered areas of fibroglandular density. BI-RADS CATEGORY: 1 - NEGATIVE RECOMMENDATION: Screening bilateral mammogram is recommended in 1 year. Mammo Location: [facility], [address] [place] [address], [id number], . -------- FINAL REPORT -------- Dictated By: David Joseph Dictated Date: 05/31/2024 17:58 ET Assigned Physician: David Joseph Reviewed and Electronically Signed By: David Joseph Signed Date: 05/31/2024 18:03 ET Workstation ID: [id number] Transcribed By: Self Edit Transcribed Date: 05/31/2024 17:58 ET us Angie Sheikh MD IMG BI PROCEDURES Final Result * External Diabetic Retina Eye Exam Report (04/03/2024 3:12 PM EST) Anatomical Region Laterality Modality Ultrasound us Denise Mccord MD IMG US PROCEDURES Final Re sult * Hepatitis C Screening (07/26/2012) Hepatitis C Screening Negative us Historical Provider HEALTH MAINTENANCE Final Result from Last 3 Months or Most Recently Relevant to Health Maintenance Insurance [employer] - [place] MEDICARE ADVANTAGE Care Teams Technical Maintenance Technician Relationship Specialty Start Date End Date Angie Sheikh MD [address] [place] [address] PCP - General 03/01/06
== END 2025-04-03 09:22 | disposition home or self-care (01) ==
LOC: HO.HPHYS 08:33
PROVIDERS: PCP Internal Medicine; Visit Provider Physical Medicine & Rehabilitation
DX: G89.4 Chronic pain syndrome (principal); E11.42 Type 2 diabetes mellitus with diabetic polyneuropathy; I89.0 Lymphedema, not elsewhere classified
CPT/HCPCS: 99214; G2211

== ENCOUNTER → 2025-04-03 08:33 | Outpatient (BNVA) | payer MEDICARE, SELFPAY | PROVIDERS: PCP Internal Medicine; Visit Provider Physical Medicine & Rehabilitation | DX: G89.4 Chronic pain syndrome (principal); E11.42 Type 2 diabetes mellitus with diabetic polyneuropathy; I89.0 Lymphedema, not elsewhere classified | CPT/HCPCS: 99212 ==